=== PATIENT | male | born 1960 | race Caucasian/White ===

== ENCOUNTER 2019-11-02 14:08 | Outpatient (CLI) | payer OTHER, SELFPAY ==
--- NOTE | 2019-11-02 14:16 | USCV_ITS ---
TarikKi duran Age: 59 Gender: M : 1960 Exam Date: 11/02/2019 14:25 Ordering Phys: Abdiel Coyle MD Technologist: Eulalia Hartman Exam Location: [facility] – [place] Indication: ATHEROEMBOLISM BP: 117 / 52 HR: 78 Rhythm: Sinus Technical Quality: Adequate MEASUREMENTS (Male / Female) Normal Values 2D ECHO LV Diastolic Diameter PLAX 4.0 cm 4.2 - 5.9 / 3.9 - 5.3 cm LV Systolic Diameter PLAX 2.3 cm IVS Diastolic Thickness 1.1 cm 0.6 - 1.0 / 0.6 - 0.9 cm IVS Systolic Thickness 1.3 cm LVPW Diastolic Thickness 1.0 cm 0.6 - 1.0 / 0.6 - 0.9 cm LVPW Systolic Thickness 1.3 cm LVOT Diameter 2.0 cm LV Ejection Fraction 2D Teich 73.0 % LV Ejection Fraction MOD 2C 81.6 % LV Ejection Fraction 2C AL 82.6 % LA Diameter 3.2 cm LA Width 3.4 cm LA Height 4.2 cm RA Width 2.9 cm RA Height 3.9 cm Aorta at Sinotubular Diameter 2.9 cm M-MODE LV Diastolic Diameter MM 5.0 cm 4.2 - 5.9 / 3.9 - 5.3 cm LV Systolic Diameter MM 2.9 cm LV Ejection Fraction MM Teich 74.2 % IVS Diastolic Thickness MM 0.9 cm 0.6 - 1.0 / 0.6 - 0.9 cm IVS Systolic Thickness MM 1.6 cm LVPW Diastolic Thickness MM 1.1 cm 0.6 - 1.0 / 0.6 - 0.9 cm LVPW Systolic Thickness MM 1.3 cm Aortic Annulus Diameter 3.3 cm LA Ao Ratio MM 1.0 MV E Point Septal Separation 0.1 cm DOPPLER AV Peak Velocity 136.0 cm/s LVOT Peak Velocity 87.0 cm/s AV Area Cont Eq vti 1.9 cm squared AV Area Cont Eq pk 2.0 cm squared MV Area PHT 3.3 cm squared Mitral E to A Ratio 1.6 MV E' Velocity 11.0 cm/s Mitral E to MV E' Ratio 8.6 Mitral E to LV E' Lateral Ratio 8.2 Mitral E to LV E' Septal Ratio 9.1 TV Peak E Velocity 68.0 cm/s Right Atrial Pressure 3.0 mmHg PV Peak Velocity 79.0 cm/s RV Acceleration Time 0.1 s RV Ejection Time 0.3 s RV AcT/ET 0.3 FINDINGS Left Ventricle Normal left ventricular size and systolic function, EF 75 %. No regional wall motion abnormalities. Right Ventricle The right ventricle is normal in size and function. Right Atrium The right atrium is normal in size. Left Atrium The left atrium is normal in size. Mitral Valve Thickened mitral valve. Mild mitral valve regurgitation. Aortic Valve No gross abnormalities noted Tricuspid Valve Trace tricuspid valve regurgitation. Pulmonic Valve No gross abnormalities noted Pericardium Normal pericardium without effusion. Aorta Normal ascending aorta dimension. CONCLUSIONS Normal left ventricular size and systolic function, EF 75 %. No regional wall motion abnormalities. Thickened mitral valve. Mild mitral valve regurgitation. Trace tricuspid valve regurgitation. There is no pericardial effusion. There are no intracardiac masses. No previous study is available for comparison. Dr Chapito Landry MD FAC (Electronically Signed) Final Date: 03 November 2019 13:17 S
--- NOTE | 2019-11-02 14:16 | CT_ITS ---
WS: [id number] CTA THORACIC AORTA WITH CONTRAST HISTORY: Possible atheromatous embolism. TECHNIQUE: CT imaging of the thoracic aorta and pulmonary artery is performed with contrast. After n oncontrast imaging is performed, CT angiogram is performed during injection of Omnipaque 350; 95 mL I V.. Sagittal and coronal reconstructions, sagittal and coronal MIP imaging is submitted. All CT scan s at [facility] use at least one of these dose optimization techniques: automated exposure control; mA and/or kV adjustment per patient size (includes targeted exams where dose is matched to clinical indication); or iterative reconstruction. DLP: 590.08 mGy.cm COMPARISON: None available. Very good opacification of the pulmonary artery. Normal size pulmonary artery with no embolism. Thora cic aorta is normal size. Contrast opacification in the aorta is adequate. There is no dissection or aneurysm. No ulcerating plaques are identified. Origin of the great vessels is normal. Lungs are clear. No pneumonia or pulmonary nodule. No pericardial or pleural effusions. Cardiac chamb er size is normal. Calcification noted in the coronary arteries. No mediastinal or hilar adenopathy. Small hiatal hernia. Cholelithiasis. No evidence for acute cholecystitis. No adrenal mass. Spleen is normal size. Visualiz ed liver is negative. Simple cyst upper pole LEFT kidney measures 12 mm. Mild increase in thoracic kyphosis with advanced spondylitic changes in the thoracic spine. CT/CT angio chest [id number] IMPRESSION: 1. No pulmonary embolism. 2. No thoracic aortic aneurysm or penetrating ulcer or significant atheromatou s plaque identified. 3. No pneumonia. 4. Cholelithiasis without acute cholecystitis.
[2019-11-02] MEDS: iohexol 350 mg/mL 100 mL Btl 71 ML IV (15:04)
== END 2019-11-02 14:09 | disposition home or self-care (01) ==
LOC: US 14:10
PROVIDERS: Family Provider Family Medicine; PCP Family Medicine; Visit Provider Family Medicine
DX: I74.8 Embolism and thrombosis of other arteries (principal); I08.1 Rheumatic disorders of both mitral and tricuspid valves; K80.20 Calculus of gallbladder without cholecystitis without obstruction
CPT/HCPCS: 71275; 93306

== ENCOUNTER 2020-08-12 12:46 | Outpatient (CLI) | payer OTHER, SELFPAY ==
--- NOTE | 2020-08-12 13:03 | XR_ITS ---
WS: [id number] PA and lateral orbits, 08/12/2020 Clinical Data: ENCOUNTER FOR SCREENING FOR METAL PRIOR TO MRI Comparison: None. Findings: There are no radiopaque foreign bodies overlying the orbits. XR/XR eye foreign body [id number] Impression: Negative for radiopaque foreign bodies overlying the orbits.
--- NOTE | 2020-08-12 13:04 | MR_ITS ---
WS: [id number] MRI CERVICAL SPINE NONCONTRAST TECHNIQUE: Sagittal T1, T2 and STIR imaging. Axial T2, gradient, and fiesta imaging. CLINICAL INFORMATION: CERVICAL RADICULOPATHY, CERVICAL OSTEOPHYTES COMPARISON: None. FINDINGS: Normal cervical alignment. No high-grade central canal stenosis. Cord signal is normal. Anterior hype rtrophic changes cervical spine. C2-C3: Mild disc bulging with endplate ridging. Mild bilateral foraminal narrowing. Mild facet arthro yasir. Spinal canal is patent. C3-C4: Mild disc bulging with mild central canal stenosis. Moderate facet arthropathy. Moderate left and moderate right bony foraminal narrowing. Mild facet arthropathy. C4-C5: Tiny shallow central protrusion. Mild central canal stenosis. Mild left greater than right bon y foraminal narrowing. Mild facet arthropathy. C5-C6: Mild disc bulging with endplate ridging. Mild left and no significant right foraminal narrowin g. Mild facet arthropathy. Spinal canal is patent. C6-C7: Mild disc bulging with endplate ridging. Severe right and moderate left bony foraminal narrowi ng. Mild central canal stenosis. C7-T1: Mild disc bulging with endplate ridging. Severe left and moderate right bony foraminal narrowi ng. Spinal canal is patent. Visualized brain stem structures: Normal. Prevertebral soft tissues: Normal. MR/MR cervical spin wo con* [id number] IMPRESSION: 1. Normal cervical alignment. Cord signal is normal. 2. Mild central canal stenosis with small central protrusions. Mild central ca nal stenosis C3-C4 C4-C5 C5-C6 and C6-C7. 3. Right pericentral protrusion C6-C7 with severe right and moderate left fora yessica narrowing at this level. 4. Severe left bony foraminal narrowing C7-T1. 5. Otherwise mild to moderate bony foraminal narrowing at left C3-C4, left C4- C5, and left C5-C6.
== END 2020-08-12 12:47 | disposition home or self-care (01) ==
PROVIDERS: PCP Family Medicine; Visit Provider Family Medicine
DX: M25.78 Osteophyte, vertebrae (principal); M54.12 Radiculopathy, cervical region; Z13.89 Encounter for screening for other disorder; M48.02 Spinal stenosis, cervical region; M50.223 Other cervical disc displacement at C6-C7 level
CPT/HCPCS: 70030; 72141

== ENCOUNTER 2021-04-22 08:24 | Outpatient (CLI) | payer OTHER, SELFPAY ==
--- NOTE | 2021-04-22 08:45 | MR_ITS ---
WS: [id number] MRI LEFT SHOULDER HISTORY: ROTATOR CUFF ARTHROPATHY OF L SHOULDER COMPARISON: Radiograph 03/25/2021 LEFT shoulder. TECHNIQUE: Multiplanar sequences of the shoulder joint are submitted. Moderate joint space narrowing with osteoarthritic disease at the AC joint. Moderate size osteophytes encroach upon the supraspinatus tendon. Osteophyte measures 7.6 mm encroaches upon the supraspinatus tendon with deformity. There is increase fluid and T2 signal along the AC ligament. Thickening of th e capsule. Very small amount of fluid in the subacromial and subdeltoid bursa. No os acromion. Biceps tendon remains in the bicipital groove. Increased signal within the central biceps tendon. Most like ly due to chronic tendinopathy. Slightly high riding humeral head. Partial, small tear involving the distal supraspinatus tendon invo lving the articular surface. Bursal surface of the tendon is still intact. There is additional mild t endinopathy in the distal supraspinatus. Mild thickening and increased signal in the distal subscapul kadeem tendon. No tear is identified. There is increased T2 signal with thickening through the rotator cuff interval. Intrasubstance degeneration in the anterior superior labrum but no tear. No muscle atr ophy or edema. MR/MR shoulder LT wo con* [id number] IMPRESSION: 1. 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 AC joint osteophytes causing si gnificant encroachment upon the distal supraspinatus tendon. 2. Partial small tear articular surface distal supraspinatus tendon. 3. Mild tendinopathy in the distal supraspinatus and subscapularis tendons. 4. Increased signal through the rotator cuff interval is probably postinflamma tory. 5. Chronic biceps tendinopathy.
== END 2021-04-22 08:25 | disposition home or self-care (01) ==
PROVIDERS: PCP Family Medicine; Visit Provider Family Medicine
DX: M19.012 Primary osteoarthritis, left shoulder (principal); M75.102 Unspecified rotator cuff tear or rupture of left shoulder, not specified as traumatic
CPT/HCPCS: 73221